=== PATIENT | female | born 1995 | race Caucasian/White ===

== ENCOUNTER 2017-05-28 22:11 | Emergency (ER) | payer SELFPAY ==
[~2017-05-28] VITALS: Ht 157.5 cm; Wt 89.8 kg
[2017-05-29] MEDS ORDERED: AMOXICILLIN500 MG PO (00:13)
[2017-05-29 00:28] VITALS: BP 126/76
== END 2017-05-29 00:28 | disposition home or self-care (01) ==
LOC: EME 22:11
DX: J02.9 Acute pharyngitis, unspecified (principal); Z20.89 Contact with and (suspected) exposure to other communicable diseases; Z87.891 Personal history of nicotine dependence
CPT/HCPCS: 87651 90; 99281; 99283